=== PATIENT | male | born 1995 | race Hispanic/Latino ===

== ENCOUNTER 2018-12-06 20:26 | Emergency (ER) | payer OTHER, SELFPAY ==
--- NOTE | 2018-12-06 21:13 | RAD ---
EXAM: 3 views of the right hand COMPARISON: None HISTORY: Right middle finger pain after trauma one week ago FINDINGS: 3 views of the right hand shows an intra-articular proximal phalanx fracture of the middle finger extending to the metacarpophalangeal joint. No degenerative changes are seen. Mild soft tissue swelling is present. IMPRESSION: Intra-articular proximal phalanx fracture of the middle finger
== END 2018-12-06 22:11 | disposition home or self-care (01) ==
LOC: ERS 20:26
DX: S62.612A Displaced fracture of proximal phalanx of right middle finger, initial encounter for closed fracture (principal); F32.9 Major depressive disorder, single episode, unspecified; X50.9XXA Other and unspecified overexertion or strenuous movements or postures, initial encounter